=== PATIENT | male | born 1960 | race Caucasian/White ===

== ENCOUNTER 2019-04-28 20:39 | Emergency (ER) | payer BC ==
[~2019-04-28] VITALS: Ht 172.7 cm; Wt 81.8 kg
[~2019-04-28 20:39] MED LIST: CIPRO 500MG TA500 MG PO; FLOMAX0.4 MG PO; NO HOME MEDICATIONS; PERCOCET 325 MG1 TA2 PO; ZOFRAN4 MG PO
[2019-04-28 21:42] LABS: BASO % 0.4 % (0.0-2.0); EOS # 0.1 (0.0-0.7); EOS % 1.2 % (0-4.0); GRAN # 7.1 (1.4-6.5); GRAN % 76.5 % (42.2-75.2); HEMATOCRIT 43.8 % (42.0-52.0); HEMOGLOBIN 14.9 g/dl (13.5-18.0); LYMPH # 1.5 (1.2-3.4); LYMPH % 15.9 % (20.0-51.0); MEAN CELL VOLUME 90 fl (80.0-100.0); MEAN CORPUSCULAR HEMOGLOBIN 31 pg (27.0-31.0); MEAN CORPUSCULAR HGB CONC 34 g/dl (33.0-37.0); MONO # 0.5 (0.1-0.6); MONO % 5.8 % (1.7-9.3); PLATELET COUNT 215 K/mm3 (130-400); RED BLOOD COUNT 4.88 M/mm3 (4.20-5.60); REDCELL DISTRIBUTION WIDTH-CV 13.1 % (11.5-14.5)
[2019-04-28 21:50] LABS: ALANINE AMINOTRANSFERASE 29 U/L (21-72); ALBUMIN 4.6 gm/dL (3.5-5.0); ALKALINE PHOSPHATASE 84 U/L (50-136); ANION GAP 10 mmol/L (7-16); AST,SGOT 30 U/L (15-37); BILIRUBIN,TOTAL 0.6 mg/dL (0.0-1.0); BLOOD UREA NITROGEN 21 mg/dL (9-20); CALCIUM 9.6 mg/dL (8.4-10.2); CARBON DIOXIDE 25 mmol/L (22-30); CHLORIDE 105 mmol/L (98-107); CREATININE, serum 1.25 (0.66-1.25); GLUCOSE 131 mg/dL (74-106); SODIUM 140 mmol/L (137-145); TOTAL PROTEIN 7.8 gm/dL (6.4-8.2)
[2019-04-28 22:02] LABS: TROPONIN-I < 0.012 ng/mL (0.000-0.035)
[2019-04-28] MEDS ORDERED: PRILOSEC 20MG20 MG PO (23:04)
[2019-04-28 23:28] VITALS: TEMP 98.7
[2019-04-29 00:11] VITALS: BP 107/74; PULSE 85
== END 2019-04-29 00:27 | disposition home or self-care (01) ==
LOC: COL.ER 20:39
PROVIDERS: Emergency Medicine
DX: T18.128A Food in esophagus causing other injury, initial encounter (principal); K21.9 Gastro-esophageal reflux disease without esophagitis; E78.5 Hyperlipidemia, unspecified
CPT/HCPCS: J0330; J1100; J2405; J2704; J3010; J7030

== ENCOUNTER 2022-07-28 04:02 | Emergency (ER) | payer BC ==
[~2022-07-28] VITALS: Ht 172.7 cm; Wt 81.8 kg
[~2022-07-28 04:02] MED LIST changes: +PRILOSEC 20MG20 MG PO
[2022-07-28 04:08] VITALS: TEMP 97
[2022-07-28 04:24] LABS: COLLECTION METHOD CLEAN CATCH
[2022-07-28 04:33] LABS: BASO # 0.1 K/mm3 (0.0-0.2); BASO % 0.6 % (0.0-2.0); EOS # 0.1 K/mm3 (0.0-0.7); EOS % 1.5 % (0.0-4.0); GRAN # 5.9 K/mm3 (1.4-6.5); GRAN % 66.9 % (42.2-75.2); HEMATOCRIT 46.4 % (42.0-52.0); HEMOGLOBIN 16.4 g/dl (13.5-18.0); LYMPH # 2.1 K/mm3 (1.2-3.4); LYMPH % 23.7 % (20.0-51.0); MEAN CELL VOLUME 88 fl (80.0-100.0); MEAN CORPUSCULAR HEMOGLOBIN 31 pg (27-31); MEAN CORPUSCULAR HGB CONC 35 g/dl (33.0-37.0); MEAN PLATELET VOLUME 8.9 fl (7.4-10.4); MONO # 0.6 K/mm3 (0.1-0.6); MONO % 7.2 % (1.7-9.3); PLATELET COUNT 222 K/mm3 (130-400); RED BLOOD COUNT 5.28 M/mm3 (4.20-5.60); REDCELL DISTRIBUTION WIDTH-CV 12.9 % (11.5-14.5)
[2022-07-28 04:38] LABS: MUCOUS Present (NOT PRESENT); PH 5.5 (5.0-8.5); SQUAMOUS EPITHELIAL 0-2 /hpf (0-10); URINE APPEARANCE Clear (CLEAR/HAZY); URINE BACTERIA None Seen /hpf (NONE SEEN); URINE BLOOD 2+ (NEGATIVE); URINE COLOR Yellow (YELLOW); URINE GLUCOSE Negative (NEGATIVE); URINE KETONE 1+ (NEGATIVE); URINE NITRATE Negative (NEGATIVE); URINE PROTEIN(semi-quant) Negative (NEGATIVE); URINE UROBILINOGEN 0.2 E.U/dL (0.2-1.0)
[2022-07-28 04:41] LABS: ALBUMIN 4.2 gm/dL (3.4-4.8); BILIRUBIN,TOTAL 0.8 mg/dL (0.2-1.2); CALCIUM 9.6 mg/dL (8.4-10.2); CREATININE, serum 1.51 mg/dL (0.72-1.25); TOTAL PROTEIN 7.3 gm/dL (6.2-8.1)
[2022-07-28] MEDS ORDERED: NORCO 325 MG-51 TAB PO (06:51)
[2022-07-28] MEDS ORDERED: FLOMAX 0.40.4 MG/CAP PO (06:51)
[2022-07-28] MEDS ORDERED: ZOFRAN ODT4 MG PO (06:51)
[2022-07-28 07:34] VITALS: BP 124/77; PULSE 87
== END 2022-07-28 07:34 | disposition home or self-care (01) ==
LOC: COL.ER 04:02
PROVIDERS: Emergency Medicine
DX: N13.2 Hydronephrosis with renal and ureteral calculous obstruction (principal); Z87.19 Personal history of other diseases of the digestive system; Z28.310 Unvaccinated for COVID-19
CPT/HCPCS: J1885; J2270; J2405; J7120; Q9967